=== PATIENT | female | born 1940 | race Caucasian/White ===

== ENCOUNTER 2018-01-31 21:17 | Inpatient (IN) | payer OTHER ==
[~2018-01-31] VITALS: Ht 162.6 cm; Wt 100.9 kg
[2018-01-31] MEDS ORDERED: MIRTAZAPINE30 M1 PO (22:04)
[2018-01-31] MEDS ORDERED: ATIVAN1 MG PO (22:06)
[2018-01-31] MEDS ORDERED: LO-DOSE ASPIRIN81 M2 PO (22:06)
[2018-01-31 22:08] LABS: MCH 30.7 PG (29.0-34.0); MCHC 33.3 G/DL (30.0-36.0); MCV 92.2 FL (83-99); PLATELET COUNT 124 K/uL (156-360); RBC DIS.WIDTH-CV 12.7 % (11.8-14.6); RBC DIS.WIDTH-SD 43.2 % (39-53); RED BLOOD COUNT 4.88 M/uL (3.80-5.20); WHITE BLOOD COUNT 11.7 K/uL (4.1-10.2)
[2018-01-31 22:27] LABS: CHLORIDE 106 mEq/L (99-109)
[2018-01-31 22:28] LABS: POTASSIUM 4.5 mEq/L (3.7-5.4); SODIUM 138 mEq/L (136-147)
[2018-01-31 22:29] LABS: GLUCOSE 131 mg/dL (70-99)
[2018-01-31 22:32] LABS: PTT 31.8 SEC (25-37)
[2018-01-31 22:33] LABS: CREATININE 0.9 mg/dL (0.6-1.3); GFR ESTIMATE (CALCULATED) > 59 mL/min/
[2018-01-31 22:34] LABS: UREA NITROGEN (BUN) 10 mg/dL (9-23)
[2018-01-31 22:36] LABS: TROP-I INTERPRETATION NEGATIVE; TROPONIN-I < 0.01 ng/mL (0.0-0.30)
[2018-02-01] VITALS (7 sets, daily range): BP systolic 120–158; BP diastolic 56–82
[2018-02-01 09:51] LABS: HEMATOCRIT 40.3 % (36.0-46.0); HEMOGLOBIN 13.3 G/DL (11.9-15.5); MCH 30.6 PG (29.0-34.0); MCV 92.6 FL (83-99); RED BLOOD COUNT 4.35 M/uL (3.80-5.20); WHITE BLOOD COUNT 10.6 K/uL (4.1-10.2)
[2018-02-01 10:01] LABS: PLATELET COUNT 172 K/uL (156-360)
[2018-02-01 10:13] LABS: CHLORIDE 105 MEQ/L (99-109); CREATININE 0.8 MG/DL (0.6-1.3); GFR ESTIMATE (CALCULATED) > 59 mL/min/; GLUCOSE 124 mg/dL (70-99); POTASSIUM 4.8 MEQ/L (3.7-5.4); SODIUM 139 MEQ/L (136-147); UREA NITROGEN (BUN) 10 mg/dL (9-23)
[2018-02-02 04:05] VITALS: BP 106/53
[2018-02-02 05:55] LABS: HEMATOCRIT 34.4 % (36.0-46.0); HEMOGLOBIN 11.2 G/DL (11.9-15.5); MCH 30.2 PG (29.0-34.0); MCHC 32.6 G/DL (30.0-36.0); MCV 92.7 FL (83-99); PLATELET COUNT 161 K/uL (156-360); RBC DIS.WIDTH-CV 12.9 % (11.8-14.6); RBC DIS.WIDTH-SD 43.8 % (39-53); RED BLOOD COUNT 3.71 M/uL (3.80-5.20); WHITE BLOOD COUNT 13.5 K/uL (4.1-10.2)
[2018-02-02 06:16] LABS: CHLORIDE 107 MEQ/L (99-109); CREATININE 0.9 MG/DL (0.6-1.3); GFR ESTIMATE (CALCULATED) > 59 mL/min/; GLUCOSE 127 mg/dL (70-99); POTASSIUM 4.1 MEQ/L (3.7-5.4); SODIUM 138 MEQ/L (136-147); UREA NITROGEN (BUN) 11 mg/dL (9-23)
[2018-02-02 08:41] VITALS: BP 134/60
[2018-02-02 11:52] VITALS: BP 129/61
[2018-02-02 15:51] VITALS: BP 135/60
[2018-02-02 20:18] VITALS: BP 138/60
[2018-02-02 23:56] VITALS: BP 139/62
[2018-02-03 04:11] VITALS: BP 122/59
[2018-02-03 04:42] LABS: HEMATOCRIT 32.8 % (36.0-46.0); HEMOGLOBIN 10.9 G/DL (11.9-15.5); MCH 30.6 PG (29.0-34.0); MCHC 33.2 G/DL (30.0-36.0); MCV 92.1 FL (83-99); PLATELET COUNT 127 K/uL (156-360); RBC DIS.WIDTH-CV 12.6 % (11.8-14.6); RBC DIS.WIDTH-SD 42.7 % (39-53); RED BLOOD COUNT 3.56 M/uL (3.80-5.20); WHITE BLOOD COUNT 14.4 K/uL (4.1-10.2)
[2018-02-03 04:55] LABS: CHLORIDE 102 mEq/L (99-109); POTASSIUM 4.3 mEq/L (3.7-5.4)
[2018-02-03 04:56] LABS: MAGNESIUM 1.8 mg/dL (1.3-2.7); SODIUM 135 mEq/L (136-147)
[2018-02-03 04:57] LABS: GLUCOSE 124 mg/dL (70-99)
[2018-02-03 05:01] LABS: CREATININE 0.8 mg/dL (0.6-1.3); GFR ESTIMATE (CALCULATED) > 59 mL/min/
[2018-02-03 05:02] LABS: UREA NITROGEN (BUN) 10 mg/dL (9-23)
[2018-02-03 07:20] VITALS: BP 129/57
[2018-02-03 11:16] VITALS: BP 126/59
[2018-02-03 16:56] VITALS: BP 129/86
[2018-02-03 19:30] VITALS: BP 136/61
[2018-02-03 23:37] VITALS: BP 118/56
[2018-02-04 04:56] VITALS: BP 108/51
[2018-02-04 05:24] LABS: HEMATOCRIT 28.9 % (36.0-46.0); HEMOGLOBIN 9.7 G/DL (11.9-15.5); MCH 31.1 PG (29.0-34.0); MCHC 33.6 G/DL (30.0-36.0); MCV 92.6 FL (83-99); PLATELET COUNT 140 K/uL (156-360); RBC DIS.WIDTH-CV 12.6 % (11.8-14.6); RED BLOOD COUNT 3.12 M/uL (3.80-5.20); WHITE BLOOD COUNT 10.9 K/uL (4.1-10.2)
[2018-02-04 05:50] LABS: CHLORIDE 99 MEQ/L (99-109); CREATININE 0.7 MG/DL (0.6-1.3); GFR ESTIMATE (CALCULATED) > 59 mL/min/; GLUCOSE 106 mg/dL (70-99); POTASSIUM 3.8 MEQ/L (3.7-5.4); SODIUM 133 MEQ/L (136-147); UREA NITROGEN (BUN) 13 mg/dL (9-23)
[2018-02-04 08:24] VITALS: BP 132/56
[2018-02-04 10:43] LABS: APPEARANCE SL.HAZY ((CLEAR)); BILIRUBIN NEGATIVE; BLOOD SMALL; COLOR YELLOW ((YELLOW)); GLUCOSE (STRIP) NEGATIVE; KETONES NEGATIVE; LEUKOCYTES TRACE; NITRITE NEGATIVE; PROTEIN (STRIP) 30; SPECIFIC GRAVITY 1.014 (1.000-1.030); UROBILINOGEN 0.2 MG/DL (0.2-1.0)
[2018-02-04] MEDS ORDERED: TRAMADOL HCL50 MG PO (10:54)
[2018-02-04] MEDS ORDERED: OXYCODONE HCL5 MG PO (10:54)
[2018-02-04 10:59] LABS: BACTERIA RARE /HPF; EPITHELIAL CELLS RARE /HPF; MUCUS TRACE /LPF
[2018-02-04] MEDS ORDERED: LOVENOX40 MG/0.4 SC (11:32)
[2018-02-04 13:00] VITALS: BP 103/52
== END 2018-02-04 14:10 | DRG 470 ==
LOC: EME → EDBD 21:17 → EDOF 22:09 → 3EAST 22:09 → ENRESERV 22:10 → 3EAST 02-01 00:27 → EDOF 02-01 00:27 → 3EAST 02-04 14:10
PROVIDERS: Emergency Medicine; Internal Medicine; Orthopaedic Surgery; Physician Assistant
PROC: 0SRS01A Replacement of Left Hip Joint, Femoral Surface with Metal Synthetic Substitute, Uncemented, Open Approach (ICD-10-PCS; principal; 2018-02-01)
DX: S72.032A Displaced midcervical fracture of left femur, initial encounter for closed fracture (principal); F33.9 Major depressive disorder, recurrent, unspecified; K57.92 Diverticulitis of intestine, part unspecified, without perforation or abscess without bleeding; Y92.002 Bathroom of unspecified non-institutional (private) residence as the place of occurrence of the external cause; Y93.E1 Activity, personal bathing and showering; Z68.38 Body mass index [BMI] 38.0-38.9, adult; Z90.49 Acquired absence of other specified parts of digestive tract; Z79.82 Long term (current) use of aspirin; K59.03 Drug induced constipation; T40.605A Adverse effect of unspecified narcotics, initial encounter; W18.2XXA Fall in (into) shower or empty bathtub, initial encounter; F41.9 Anxiety disorder, unspecified; G93.89 Other specified disorders of brain; I35.1 Nonrheumatic aortic (valve) insufficiency; K21.9 Gastro-esophageal reflux disease without esophagitis; M81.0 Age-related osteoporosis without current pathological fracture; E66.9 Obesity, unspecified; Z90.5 Acquired absence of kidney; Z87.442 Personal history of urinary calculi; Z82.5 Family history of asthma and other chronic lower respiratory diseases; Z80.9 Family history of malignant neoplasm, unspecified
CPT/HCPCS: 70450; 71045; 74018; 80048; 81003; 83735; 84484; 85014; 85018; 85027; 85610; 85730; 86850; 86900; 86901; 93005; 93306; 94799; 97530 GP; 99281; 99285; J0131; J0330; J0690; J1100; J1170; J1200; J1644; J2405; J2710; J3010; J7030; S0020